=== PATIENT | male | born 1970 | race Caucasian/White ===

== ENCOUNTER 2019-09-02 11:29 | Outpatient (CLI) | payer OTHER, SELFPAY ==
[2019-09-02 12:38] LABS: Thyroid Stimulating Hormone 0.802 uIU/mL (0.465-4.680)
[2019-09-05 01:59] LABS: Homocysteine 10.3 umol/L (<11.4)
[2019-09-05 04:43] LABS: Anti Cardio Antibody IgM 13 MPL (<=12); Anti Cardiolipin Antibody IgA <11 APL (<=11); Anti Cardiolipin Antibody IgG 18 GPL (<=14)
[2019-09-07 03:58] LABS: Hex Phase Conf Chg Test Yes; Lupus dRVVT 1:1 Mix Interpreta Not Indicated; Lupus dRVVT Screen 36 sec (<=45); LupusdRVVT 1:1Mix Int Chg Test Yes; PTT-LA Screen 35 sec (<=40)
[2019-09-07 14:31] LABS: Beta-2-Microglobulin 1.29 mg/L (<=2.51)
== END 2019-09-02 11:30 | disposition home or self-care (01) ==
LOC: ANHLAB 11:31
PROVIDERS: PCP Family Medicine; Visit Provider Internal Medicine Hematology & Oncology
DX: I82.4Y1 Acute embolism and thrombosis of unspecified deep veins of right proximal lower extremity (principal); R22.1 Localized swelling, mass and lump, neck; E04.1 Nontoxic single thyroid nodule
CPT/HCPCS: 36415; 82232; 83090; 84443; 85598; 85613; 85730; 86147

== ENCOUNTER 2020-04-11 14:40 | Outpatient (CLI) | payer OTHER, SELFPAY ==
--- NOTE | ~2020-04-11 | CT_ITS ---
EXAMINATION: CT soft tissue neck w con DATE: 04/11/2020 15:45 INDICATION: Neck mass. Hyperparathyroidism. TECHNIQUE: Computed tomography (CT) of the neck was performed with 75 mL Omnipaque-350 intravenous co ntrast. Automated exposure control and iterative reconstruction technique were employed. The dose-shayy gth product was 656.47 mGy-cm. COMPARISON: Chest CT 06/23/2018 FINDINGS: There are no pathologically enlarged lymph nodes. There is no visible plaque in the proxima l internal carotid arteries. The thyroid is severely enlarged and demonstrates heterogeneous attenuat ion. There is a 12 x 9 mm mass in right tracheoesophageal groove. There is mild thoracic spondylosis. IMPRESSION: 1. Goiter. 2. Chronic mass in right tracheoesophageal groove, which may be a normal lymph node or a parathyroid adenoma. Reviewed, dictated and finalized at location A.
== END 2020-04-11 14:41 | disposition home or self-care (01) ==
PROVIDERS: PCP Family Medicine; Visit Provider Internal Medicine Hematology & Oncology
DX: E21.3 Hyperparathyroidism, unspecified (principal); E04.9 Nontoxic goiter, unspecified
CPT/HCPCS: 70491; Q9967

== ENCOUNTER 2020-04-28 06:37 | Outpatient (CLI) | payer OTHER, SELFPAY ==
[2020-04-28 07:31] LABS: Anion Gap 8 mmol/L (8-16); Blood Urea Nitrogen 13 mg/dL (9-20); Calcium 9.1 mg/dL (8.4-10.2); Carbon Dioxide 30 mmol/L (22-30); Chloride 103 mmol/L (98-107); Estimated Glomerular Filt Rate > 60; Glucose 117 mg/dL (75-110); Potassium 4.2 mmol/L (3.4-5.0); Sodium 141 mmol/L (137-145)
[2020-04-28 08:00] LABS: Thyroid Stimulating Hormone 0.261 uIU/mL (0.465-4.680)
[2020-04-28 08:03] LABS: Free T4 Free Thyroxine 1.01 ng/mL (0.78-2.19)
== END 2020-04-28 06:38 | disposition home or self-care (01) ==
PROVIDERS: PCP Family Medicine; Visit Provider Family Medicine
DX: E83.52 Hypercalcemia (principal); E04.9 Nontoxic goiter, unspecified
CPT/HCPCS: 36415; 80048; 83519; 84439; 84443

== ENCOUNTER 2020-07-15 06:52 | Outpatient (NON) | payer OTHER, SELFPAY ==
[2020-07-16 01:24] LABS: SARS-CoV-2 RNA PCR Negative
== END 2020-07-15 06:53 ==
PROVIDERS: PCP Family Medicine; Visit Provider Chiropractor Rehabilitation
DX: Z20.828 Contact with and (suspected) exposure to other viral communicable diseases (principal); R09.89 Other specified symptoms and signs involving the circulatory and respiratory systems
CPT/HCPCS: 87635; C9803; U0003

== ENCOUNTER 2021-11-05 06:41 | Outpatient (CLI) | payer OTHER, SELFPAY ==
[2021-11-05 07:58] LABS: Free T4 Free Thyroxine 0.93 ng/mL (0.78-2.19); Thyroid Stimulating Hormone 0.659 uIU/mL (0.465-4.680)
[2021-11-07 15:47] LABS: Triiodothyronine T3 Free 3.7 pg/mL (2.3-4.2)
[2021-11-08 05:20] LABS: Thyroglobulin 277.1 ng/mL (2.8-40.9); Thyroglobulin Antibodies <1 IU/mL (<=1); Thyroid Peroxidase Antibodies <1 IU/mL (<9)
== END 2021-11-05 06:42 | disposition home or self-care (01) ==
PROVIDERS: PCP Family Medicine; Visit Provider Nurse Practitioner
DX: E04.9 Nontoxic goiter, unspecified (principal)
CPT/HCPCS: 36415; 84432; 84439; 84443; 84481; 86376; 86800

== ENCOUNTER → 2021-11-16 12:06 | Outpatient (CLI) | payer OTHER, SELFPAY ==
--- NOTE | ~2021-11-16 | US_ITS ---
EXAMINATION: US thyroid DATE: 11/16/2021 12:27 INDICATION: Nontoxic goiter. TECHNIQUE: Multiple ultrasound images of the thyroid were obtained. COMPARISON: CT neck 04/11/2020, chest CT 02/22/2018 FINDINGS: The right thyroid lobe measures 9.1 x 5.0 x 4.3 cm. The left thyroid lobe measures 7.9 x 4.2 x 3.7 c m. The thyroid is diffusely heterogeneous. Vascularity is normal. In the left thyroid lobe, there is a 4.1 cm mixed cystic and solid, hyperechoic, heoxa-[id number]-[id number] nodule with ill-defined margin without echogenic foci (TI-RADS TR2). IMPRESSION: 1. Chronically enlarged thyroid with chronic left thyroid nodule, likely not clinically significant. No follow-up is needed. Reviewed, dictated and finalized at location B. IMPRESSION: 1. Chronically enlarged thyroid with chronic left thyroid nodule, likely not cl inically significant. No follow-up is needed.
== END ==
PROVIDERS: PCP Nurse Practitioner; Visit Provider Nurse Practitioner
DX: E04.9 Nontoxic goiter, unspecified (principal)
CPT/HCPCS: 76536

== ENCOUNTER 2021-11-30 08:01 | Outpatient (CLI) | payer OTHER, SELFPAY ==
--- NOTE | ~2021-11-30 | US_ITS ---
EXAMINATION: US FNA w image guidance DATE: 11/30/2021 09:25 INDICATION: Thyroid nodule TECHNIQUE: The procedure and its benefits and risks were discussed with the patient. Risks specifically discusse d included bleeding and infection. The patient verbalized understanding of the risks and agreed to pr oceed. A time out was performed to verify patient information and procedure. The neck was prepared an d draped in the usual sterile manner. 1% lidocaine was used for local anesthesia. Six passes were m leandro with a 25G needle into the lesion. Appropriate needle location was documented with continuous so nographic guidance. A sterile bandage was applied. There were no immediate complications. FINDINGS: Grayscale ultrasound images demonstrate needles advanced into a solid left thyroid nodule for biopsy. IMPRESSION: 1. Successful ultrasound-guided fine needle aspiration of a solid left thyroid nodule. Reviewed, dictated and finalized at location B.
== END 2021-11-30 08:02 | disposition home or self-care (01) ==
PROVIDERS: PCP Family Medicine; Visit Provider Nurse Practitioner
DX: E04.1 Nontoxic single thyroid nodule (principal)
CPT/HCPCS: 10005; 88173; 88305

== ENCOUNTER 2021-12-27 07:38 | Outpatient (CLI) | payer OTHER, SELFPAY ==
[2021-12-27 09:08] LABS: Parathyroid Intact 112.6 pg/mL (7.5-53.5)
[2022-01-01 21:21] LABS: Calcitonin <2 pg/mL (<=10)
== END 2021-12-27 07:39 | disposition home or self-care (01) ==
LOC: ANHLAB 07:39
PROVIDERS: PCP Family Medicine; Visit Provider Internal Medicine Endocrinology, Diabetes & Metabolism
DX: E04.2 Nontoxic multinodular goiter (principal)
CPT/HCPCS: 36415; 82308; 82542; 83970

== ENCOUNTER 2021-12-29 06:17 | Outpatient (CLI) | payer OTHER, SELFPAY | END 2021-12-29 06:53 | disposition home or self-care (01) | LOC: ANHLAB 07-01 06:17 | PROVIDERS: PCP Family Medicine; Visit Provider Internal Medicine Endocrinology, Diabetes & Metabolism | DX: E04.2 Nontoxic multinodular goiter (principal) | CPT/HCPCS: 36415; 82542 ==

== ENCOUNTER 2022-01-14 06:49 | Outpatient (CLI) | payer OTHER, SELFPAY ==
--- NOTE | ~2022-01-14 | NM_ITS ---
EXAMINATION: NM parathyroid w imaging DATE: 01/14/2022 14:20 INDICATION: Hyperparathyroidism. TECHNIQUE: 20 mCi Tc99m sestamibi was administered intravenously. Anterior images of the neck were ob tained immediately and at 2 hours. SPECT images of the neck were obtained. COMPARISON: Thyroid ultrasound 11/16/2021, neck CT 04/11/2020 FINDINGS: There is a multinodular goiter with areas of increased activity, greatest on the right supe riorly. There is no single focus of persistent activity in the area of the thyroid or mediastinum to suggest a parathyroid adenoma. IMPRESSION: 1. No specific evidence of a parathyroid adenoma. The large multinodular goiter decreases sensitivity and specificity. Reviewed, dictated and finalized at location A.
== END 2022-01-14 06:50 | disposition home or self-care (01) ==
PROVIDERS: PCP Family Medicine; Visit Provider Nurse Practitioner
DX: E21.3 Hyperparathyroidism, unspecified (principal)
CPT/HCPCS: 78070; A9500

== ENCOUNTER 2022-03-06 13:17 | Outpatient (CLI) | payer OTHER, SELFPAY ==
[2022-03-06 13:32] LABS: Basophils Percent Auto 0.4 % (0.2-1.2); Eosinophils Absolute Auto 0.2 K/mm3 (0-0.3); Eosinophils Percent Auto 2.3 % (0-4.4); Hematocrit 43.4 % (42.0-52.0); Hemoglobin 14.5 g/dL (14.0-18.0); Immature Granulocyte Absolute 0.02 K/mm3 (0.00-0.031); Immature Granulocyte Percent A 0.3 % (0-0.5); Lymphocytes Absolute Auto 2.79 K/mm3 (0.9-3.2); Lymphocytes Percent Auto 38.5 % (18.3-44.2); Mean Corpuscular HGB Conc 33.4 g/dl (32-36); Mean Corpuscular Volume 92.7 fl (80-100); Mean Platelet Volume 9.1 fl (7.4-10.4); Monocytes Absolute Auto 0.6 K/mm3 (0.1-0.6); Monocytes Percent Auto 8.8 % (2.6-8.5); Neutrophils Absolute Auto 3.6 K/mm3 (1.3-6.7); Neutrophils Percent Auto 49.7 % (45.5-73.1); Platelet Count Result 246 k/mm3 (150-375); Red Blood Count 4.68 M/mm3 (4.6-6.20); Red Cell Distribution Width 11.9 % (11.5-14.5); White Blood Count 7.3 K/mm3 (4.5-10.0)
== END 2022-03-06 13:18 | disposition home or self-care (01) ==
PROVIDERS: PCP Family Medicine; Visit Provider Internal Medicine Hematology & Oncology
DX: I82.4Y1 Acute embolism and thrombosis of unspecified deep veins of right proximal lower extremity (principal)
CPT/HCPCS: 36415; 85025

== ENCOUNTER 2022-08-13 06:44 | Outpatient (CLI) | payer OTHER, SELFPAY ==
[2022-08-13 07:18] LABS: Anion Gap 4 mmol/L (8-16); Blood Urea Nitrogen 13 mg/dL (9-20); Calcium 8.6 mg/dL (8.4-10.2); Carbon Dioxide 29 mmol/L (22-30); Chloride 103 mmol/L (98-107); Estimated Glomerular Filt Rate > 60; Glucose 115 mg/dL (65-110); Potassium 4.2 mmol/L (3.4-5.0); Sodium 136 mmol/L (137-145)
[2022-08-13 07:29] LABS: Parathyroid Intact 111.1 pg/mL (7.5-53.5)
== END 2022-08-13 06:45 | disposition home or self-care (01) ==
PROVIDERS: PCP Family Medicine
DX: E04.9 Nontoxic goiter, unspecified (principal)
CPT/HCPCS: 36415; 80048; 83970

== ENCOUNTER 2022-09-25 06:56 | Outpatient (CLI) | payer OTHER, SELFPAY ==
[2022-09-25 07:34] LABS: Alanine Aminotransferase 81 U/L (6-50); Albumin Level 4.4 g/dL (3.5-5.1); Alkaline Phosphatase 60 U/L (38-126); Anion Gap 6 mmol/L (8-16); Aspartate Amino Transferase 65 U/L (17-59); Bilirubin,Total 0.8 mg/dL (0.2-1.3); Blood Urea Nitrogen 16 mg/dL (9-20); Carbon Dioxide 24 mmol/L (22-30); Chloride 103 mmol/L (98-107); Estimated Glomerular Filt Rate > 60; Glucose 134 mg/dL (65-110); Magnesium 1.6 mg/dL (1.6-2.3); Phosphorus 3.2 mg/dL (2.5-4.5); Potassium 3.8 mmol/L (3.4-5.0); Sodium 133 mmol/L (137-145)
[2022-09-25 08:04] LABS: Thyroid Stimulating Hormone 0.812 uIU/mL (0.465-4.680)
[2022-09-25 08:15] LABS: Free T4 Free Thyroxine 0.86 ng/mL (0.78-2.19); Vitamin D 25 Hydroxy 22.4 ng/mL
== END 2022-09-25 06:57 | disposition home or self-care (01) ==
LOC: ANHLAB 06:57
PROVIDERS: PCP Family Medicine; Visit Provider Internal Medicine
DX: E21.3 Hyperparathyroidism, unspecified (principal); E04.9 Nontoxic goiter, unspecified
CPT/HCPCS: 36415; 80053; 82306; 83735; 83970; 84100; 84439; 84443

== ENCOUNTER 2022-09-27 06:56 | Outpatient (CLI) | payer OTHER, SELFPAY ==
[2022-09-27 11:07] LABS: Creatinine Urine 120.5 mg/dL
[2022-09-27 12:11] LABS: Hemoglobin A1C 5.9 % (<5.7)
[2022-09-27 12:58] LABS: Creatinine 24 Hour Urine 2.2 gm/24 (1.0-2.0); Total Volume 24 Hour Urine 1900 ml
[2022-10-02 07:32] LABS: Total Volume 1900; Urine Calcium 19.1
== END 2022-09-27 06:57 | disposition home or self-care (01) ==
LOC: ANHLAB 06:57
PROVIDERS: PCP Family Medicine; Visit Provider Internal Medicine
DX: E21.3 Hyperparathyroidism, unspecified (principal); E66.9 Obesity, unspecified
CPT/HCPCS: 36415; 81050; 82340; 82570; 83036

== ENCOUNTER 2022-09-27 13:10 | Outpatient (CLI) | payer OTHER, SELFPAY ==
--- NOTE | ~2022-09-27 | DEXA_ITS ---
Bone Density Report Name: BHARTI BARRERA Age: 52 Sex: Male Ethnicity: White Date of : 1970 Indication: hyperparathyroidism Referring Provider: KARSON SANDOVAL Study: Bone densitometry was performed. Exam Date: September 27, 2022 Accession number: [id number] Bone Density: Region BMD T-score Z-score Classification Total Forearm (Left) 0.755 1.3 1.8 1/3 Forearm (Left) 0.851 0.6 1.1 UD Forearm (Left) 0.612 1.1 1.7 World Health Organization criteria for BMD impression classify patients as: Normal (T-score at or above -1.0), Osteopenia (T-score between -1.0 and -2.5), or Osteoporosis (T-score at or below -2.5). Impression: The patient has normal bone mass. Discussion: BONE DENSITY IS ABOVE THE MINIMUM DESIRABLE LEVEL AT ALL SKELETAL SITES TESTED. This patient?s bone mineral density is above the minimum desirable level (T-score -1.0 or better) at all sites measured. The patient should follow a healthful lifestyle (good nutrition with adequate calcium and vitamin D, and appropriate weight-bearing exercise). Follow-Up: Consider repeating this study in 5 years or sooner if there is some new clinical indication. Reported by: [facility] on 09/27/2022 3:37:00 PM. Reviewed, dictated and finalized at location A. [facility]
--- NOTE | ~2022-09-27 | DEXA_ITS ---
Bone Density Report Name: BHARTI BARRERA Age: 52 Sex: Male Ethnicity: White Date of : 1970 Indication: hyperparathyroidism Referring Provider: KARSON SANDOVAL Study: Bone densitometry was performed. Exam Date: September 27, 2022 Accession number: [id number] Bone Density: Region BMD T-score Z-score Classification AP Spine(L1-L4) 1.253 1.5 1.8 Normal Femoral Neck (Left) 1.090 1.2 1.9 Normal Total Hip (Left) 1.388 2.4 2.7 Normal Femoral Neck (Right) 1.180 1.8 2.6 Normal Total Hip (Right) 1.330 2.0 2.3 Normal Total Hip Mean 1.359 2.2 2.5 Normal World Health Organization criteria for BMD impression classify patients as: Normal (T-score at or above -1.0), Osteopenia (T-score between -1.0 and -2.5), or Osteoporosis (T-score at or below -2.5). 10-year Fracture Risk: FRAX not reported because: All T-scores for Spine Total, Hip Total, Femoral Neck at or above -1.0 Impression: The patient has normal bone mass. Discussion: BONE DENSITY IS ABOVE THE MINIMUM DESIRABLE LEVEL AT ALL SKELETAL SITES TESTED. This patient?s bone mineral density is above the minimum desirable level (T-score -1.0 or better) at all sites measured. The patient should follow a healthful lifestyle (good nutrition with adequate calcium and vitamin D, and appropriate weight-bearing exercise). Follow-Up: Consider repeating this study in 5 years or sooner if there is some new clinical indication. Reported by: [facility] on 09/27/2022 3:23:00 PM. Reviewed, dictated and finalized at location ABrennan BAKER
== END 2022-09-27 13:11 | disposition home or self-care (01) ==
PROVIDERS: PCP Family Medicine; Visit Provider Internal Medicine
DX: E21.3 Hyperparathyroidism, unspecified (principal)
CPT/HCPCS: 77080; 77081

== ENCOUNTER 2023-01-23 07:08 | Outpatient (CLI) | payer OTHER, SELFPAY ==
[2023-01-23 08:05] LABS: Hemoglobin A1C 5.9 % (<5.7)
[2023-01-23 08:12] LABS: Phosphorus 3.2 mg/dL (2.5-4.5)
[2023-01-23 08:18] LABS: Alanine Aminotransferase 44 U/L (6-50); Albumin Level 4.2 g/dL (3.5-5.1); Alkaline Phosphatase 57 U/L (38-126); Anion Gap 6 mmol/L (8-16); Aspartate Amino Transferase 38 U/L (17-59); Bilirubin,Total 0.3 mg/dL (0.2-1.3); Blood Urea Nitrogen 14 mg/dL (9-20); Calcium 9.3 mg/dL (8.4-10.2); Carbon Dioxide 28 mmol/L (22-30); Chloride 105 mmol/L (98-107); Estimated Glomerular Filt Rate > 60; Glucose 108 mg/dL (65-110); Potassium 4.1 mmol/L (3.4-5.0); Sodium 139 mmol/L (137-145)
[2023-01-23 08:25] LABS: Parathyroid Intact 40.3 pg/mL (7.5-53.5)
[2023-01-23 08:44] LABS: Hepatitis B Surface Antigen Negative (Negative)
[2023-01-23 08:47] LABS: Prostate Specific Antigen 0.3 ng/mL (< OR = 4.0)
[2023-01-23 08:51] LABS: HAV RESULT Negative (Negative); Hepatitis B Core IgM Result Negative (Negative)
[2023-01-23 08:59] LABS: Hepatitis C Virus Antibody Negative (Negative)
[2023-01-23 09:04] LABS: Free T4 Free Thyroxine Reflex 0.76 ng/dL (0.78-2.19)
[2023-01-29 06:16] LABS: Calcium/Creatinine Ratio, Ur 101 mg/g creat (10-240); Urine Calcium, Random 18.6 mg/dL (***)
== END 2023-01-23 07:09 | disposition home or self-care (01) ==
PROVIDERS: PCP Family Medicine
DX: Z00.00 Encounter for general adult medical examination without abnormal findings (principal); R73.01 Impaired fasting glucose; R79.89 Other specified abnormal findings of blood chemistry; E21.3 Hyperparathyroidism, unspecified
CPT/HCPCS: 36415; 80053; 80074; 82310; 82570; 82728; 83036; 83735; 83970; 84100; 84153; 84439; 84443; 86038; 86039